=== PATIENT | female | born 2005 | race Caucasian/White ===

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

== ENCOUNTER 2023-02-08 14:30 | Outpatient (RCR) | payer BC, SELFPAY | END 2023-04-04 15:11 | disposition home or self-care (01) | PROVIDERS: Visit Provider Family Medicine | DX: M54.9 Dorsalgia, unspecified (principal); M54.6 Pain in thoracic spine; Z51.89 Encounter for other specified aftercare | CPT/HCPCS: 97110; 97140; 97161 ==

== ENCOUNTER 2023-06-23 20:32 | Emergency (ER) | payer OTHER, BC, SELFPAY ==
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
[2023-06-23 20:37] VITALS: BP 143/87; PULSE 84; RESP 18; TEMP 36.4; O2SAT 100
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
[2023-06-23] MEDS: IBUPROFEN 600 MG TABLET PO (23:15)
== END 2023-06-23 23:22 | disposition home or self-care (01) ==
PROVIDERS: Emergency Provider Emergency Medicine
DX: S06.0X0A Concussion without loss of consciousness, initial encounter (principal); S19.9XXA Unspecified injury of neck, initial encounter; V43.62XA Car passenger injured in collision with other type car in traffic accident, initial encounter; Y92.414 Local residential or business street as the place of occurrence of the external cause
CPT/HCPCS: 70450; 72125; 99283; 99285; A9270

== ENCOUNTER 2023-12-26 14:51 | Outpatient (CLI) | payer BC, SELFPAY | END 2023-12-26 14:52 | disposition home or self-care (01) | LOC: LAB 14:55 | PROVIDERS: PCP Internal Medicine; Visit Provider Internal Medicine | DX: B27.90 Infectious mononucleosis, unspecified without complication (principal) | CPT/HCPCS: 36415; 86664; 86665 ==